=== PATIENT | female | born 1990 | race Two or more races ===

== ENCOUNTER 2021-05-14 10:07 | Outpatient (CLI) | payer OTHER | END 2021-05-14 10:19 | disposition home or self-care (01) | LOC: RX STUDY 10:07 | DX: N93.8 Other specified abnormal uterine and vaginal bleeding (principal); N97.0 Female infertility associated with anovulation ==

== ENCOUNTER → 2021-10-15 10:10 | Outpatient (CLI) | payer OTHER | END | disposition home or self-care (01) | LOC: RAD 10:10 | PROVIDERS: ATTEND Internal Medicine | DX: K21.9 Gastro-esophageal reflux disease without esophagitis (principal); G47.31 Primary central sleep apnea; I10 Essential (primary) hypertension ==

== ENCOUNTER 2022-11-07 15:14 | Emergency (ER) | payer OTHER ==
[~2022-11-07] VITALS: Ht 152.4 cm; Wt 59.4 kg
== END 2022-11-07 19:10 | disposition home or self-care (01) ==
LOC: ER 15:14
DX: O98.811 Other maternal infectious and parasitic diseases complicating pregnancy, first trimester (principal); Z3A.10 10 weeks gestation of pregnancy; Z88.2 Allergy status to sulfonamides; J06.9 Acute upper respiratory infection, unspecified; Z20.822 Contact with and (suspected) exposure to COVID-19

== ENCOUNTER 2022-11-15 22:01 | Emergency (ER) | payer OTHER ==
[~2022-11-15] VITALS: Ht 152.4 cm; Wt 58.1 kg
== END 2022-11-16 04:18 | disposition home or self-care (01) ==
LOC: ER 22:01
DX: O20.8 Other hemorrhage in early pregnancy (principal); Z3A.13 13 weeks gestation of pregnancy; Z88.2 Allergy status to sulfonamides

== ENCOUNTER 2022-12-11 12:49 | Emergency (ER) | payer OTHER ==
[~2022-12-11] VITALS: Ht 152.4 cm; Wt 59.4 kg
[2022-12-11] MEDS ORDERED: SYNTHROID88 MCG (13:10)
[2022-12-11] MEDS ORDERED: PANTOPRAZOLE SO40 MG (13:10)
[2022-12-11] MEDS ORDERED: ONE-A-DAY PREN1 EAC2 (13:13)
== END 2022-12-11 16:02 | disposition home or self-care (01) ==
LOC: ER 12:49
DX: O20.9 Hemorrhage in early pregnancy, unspecified (principal); O99.282 Endocrine, nutritional and metabolic diseases complicating pregnancy, second trimester; E03.9 Hypothyroidism, unspecified; Z3A.16 16 weeks gestation of pregnancy; Z88.2 Allergy status to sulfonamides; Z91.018 Allergy to other foods

== ENCOUNTER 2023-01-09 11:05 | Outpatient (CLI) | payer OTHER ==
[~2023-01-09 11:05] MED LIST: ONE-A-DAY PREN1 EAC2; PANTOPRAZOLE SO40 MG; SYNTHROID88 MCG
== END 2023-01-09 13:12 | disposition home or self-care (01) ==
LOC: PRENATAL 11:05
PROVIDERS: ATTEND Obstetrics & Gynecology Maternal & Fetal Medicine
DX: O35.9XX0 Maternal care for (suspected) fetal abnormality and damage, unspecified, not applicable or unspecified (principal); O99.280 Endocrine, nutritional and metabolic diseases complicating pregnancy, unspecified trimester; Z3A.20 20 weeks gestation of pregnancy

== ENCOUNTER 2023-01-30 17:32 | Outpatient (CLI) | payer OTHER | END 2023-01-31 13:28 | disposition home or self-care (01) | LOC: OBS/DEL 17:32 | PROVIDERS: ATTEND Student in an Organized Health Care Education/Training Program | DX: O26.852 Spotting complicating pregnancy, second trimester (principal); R10.2 Pelvic and perineal pain; Z3A.23 23 weeks gestation of pregnancy ==

== ENCOUNTER 2023-02-13 16:48 | Inpatient (IN) | payer OTHER ==
[~2023-02-13] VITALS: Ht 152.4 cm; Wt 61.2 kg
[2023-02-13] MEDS ORDERED: PROMETRIUM200 MG PO (17:32)
[2023-02-13] MEDS ORDERED: PROBIOTIC1 EAC2 PO (17:33)
[2023-02-13] MEDS ORDERED: IRON325 MG PO (17:33)
[2023-02-14] MEDS ORDERED: PROVENTIL HFA6.7 GM IH (16:53)
[2023-02-14] MEDS ORDERED: PULMICORT FLEX90 MCG IH (16:55)
== END 2023-02-14 19:28 | disposition home or self-care (01) | DRG 831 ==
LOC: LDR 16:48
PROVIDERS: ADMIT Obstetrics & Gynecology; ATTEND Obstetrics & Gynecology
PROC: 4A1HXCZ Monitoring of Products of Conception, Cardiac Rate, External Approach (ICD-10-PCS; principal; 2023-02-13)
DX: O98.512 Other viral diseases complicating pregnancy, second trimester (principal); U07.1 COVID-19; Z3A.25 25 weeks gestation of pregnancy; Z20.822 Contact with and (suspected) exposure to COVID-19; O46.8X2 Other antepartum hemorrhage, second trimester

== ENCOUNTER 2023-04-03 10:08 | Outpatient (CLI) | payer OTHER ==
[~2023-04-03 10:08] MED LIST changes: +IRON325 MG PO; +PROBIOTIC1 EAC2 PO; +PROMETRIUM200 MG PO; +PROVENTIL HFA6.7 GM IH; +PULMICORT FLEX90 MCG IH
== END 2023-04-03 11:19 | disposition home or self-care (01) ==
LOC: PRENATAL 10:08
PROVIDERS: ATTEND Obstetrics & Gynecology Maternal & Fetal Medicine
DX: O26.849 Uterine size-date discrepancy, unspecified trimester (principal); O36.8199 Decreased fetal movements, unspecified trimester, other fetus; O99.280 Endocrine, nutritional and metabolic diseases complicating pregnancy, unspecified trimester; O26.859 Spotting complicating pregnancy, unspecified trimester; Z3A.33 33 weeks gestation of pregnancy

== ENCOUNTER 2023-05-07 07:35 | Inpatient (IN) | payer OTHER ==
[~2023-05-07] VITALS: Ht 152.4 cm; Wt 64.0 kg
[2023-05-07] MEDS ORDERED: VALTREX1000 MG PO (08:43)
[2023-05-09] MEDS ORDERED: IBU800 MG PO (08:02)
[2023-05-09] MEDS ORDERED: SIMETHICONE80 MG PO (08:02)
[2023-05-09] MEDS ORDERED: COLACE100 MG PO (08:02)
== END 2023-05-09 18:15 | disposition home or self-care (01) | DRG 807 ==
LOC: LDR 07:35 → OB/GYN 16:56
PROVIDERS: ADMIT Obstetrics & Gynecology; ATTEND Obstetrics & Gynecology
PROC: 10E0XZZ Delivery of Products of Conception, External Approach (ICD-10-PCS; principal; 2023-05-07)
PROC: 0KQM0ZZ Repair Perineum Muscle, Open Approach (ICD-10-PCS; 2023-05-07)
PROC: 4A1HXCZ Monitoring of Products of Conception, Cardiac Rate, External Approach (ICD-10-PCS; 2023-05-07)
DX: O70.1 Second degree perineal laceration during delivery (principal); Z37.0 Single live birth; Z3A.37 37 weeks gestation of pregnancy; Z20.822 Contact with and (suspected) exposure to COVID-19

== ENCOUNTER 2025-02-21 10:11 | Day surgery (SDC) | payer OTHER ==
[2025-02-15 08:42] LABS: EOS # 0.12 (0.04-0.54); EOS % 1.5 % (0.7-7.0); HEMOGLOBIN 12.9 g/dL (11.2-15.7); LYMPH # 2.26 (1.18-3.74); LYMPH % 27.9 % (19.3-53.1); MEAN CORPUSCULAR HEMOGLOBIN 27.9 pg (25.6-32.2); MONO # 0.56 (0.24-0.82); MONO % 6.9 % (4.7-12.5); NEUT # 5.05 (1.56-6.13); NEUT % 62.3 % (34.0-71.1); PLATELET COUNT 304 K/uL (163-369); RED BLOOD COUNT 4.63 M/uL (3.93-5.22); RED CELL DISTRIBUTION WIDTH 12.2 % (11.6-14.4)
[2025-02-15 09:10] VITALS: BP 95/67
[2025-02-15 09:16] LABS: INR < 0.93; PARTIAL THROMBOPLASTIN TIME 29.5 SECONDS (22.0-34.0); PROTHROMBIN TIME 9.7 SECONDS (9.0-11.5)
[2025-02-15 09:19] LABS: ALBUMIN 3.9 gm/dL (3.4-5.0); BILIRUBIN TOTAL 0.31 mg/dL (0.3-1.2); CALCIUM 9.3 mg/dL (8.5-10.1); CREATININE SERUM 0.87 mg/dL (0.55-1.02); GFR 73.67; GLOBULINA 3.3 G/DL (2.4-3.5); POTASSIUM 4.24 mEq/L (3.5-5.1); TOTAL PROTEIN 7.2 gm/dL (6.4-8.2)
[2025-02-15 09:24] LABS: URINE APPEARANCE Clear; URINE BILIRRUBIN Negative (NEGATIVE); URINE BLOOD Negative; URINE COLOR Yellow; URINE GLUCOSE Negative (NEGATIVE); URINE KETONE Trace (NEGATIVE); URINE LEUKOCYTE Negative; URINE NITRATE Negative; URINE PROTEIN Negative (NEGATIVE); URINE UROBILINOGEN 0.2 E.U./dl
[2025-02-15 09:28] LABS: URINE BACTERIA 159.1 uL (0.0-1933); URINE EPITHELIAL CELLS 28.1 uL (0.0-38.8); URINE RBC 26.8 uL (0.0-20.8); URINE WBC 7.4 uL (0.0-23.2)
[2025-02-15 09:36] LABS: URINE CAST 0.29 uL (0.0-1.40)
[~2025-02-21] VITALS: Ht 152.4 cm; Wt 65.8 kg
[~2025-02-21 10:11] MED LIST changes: +COLACE100 MG PO; +IBU800 MG PO; +PROBIOTIC1 EAC4; +SIMETHICONE80 MG PO; +VALTREX1000 MG PO; +[UNRECOGNIZED DRUG - OTHER]
[2025-02-21] MEDS ORDERED: POVIDONE-IODINE 118 ML BOTT TOP ONE (12:24)
[2025-02-21] MEDS ORDERED: IBU800 MG PO (12:39)
[2025-02-21] MEDS ORDERED: OXYCODONE HCL5 M1 PO (12:39)
[2025-02-21] MEDS ORDERED: COLACE100 MG PO (12:39)
[2025-02-21] MEDS ORDERED: SURGIFLO APPLICATOR 1 EACH APPL TOP ONE (14:31)
[2025-02-21] MEDS ORDERED: HEMOSTATIC MATRIX 1 KIT KIT TOP ONE (14:31)
== END 2025-02-21 18:20 | disposition home or self-care (01) ==
LOC: CIR.AMB 10:11
PROVIDERS: ATTEND Student in an Organized Health Care Education/Training Program
DX: N80.311 Superficial endometriosis of the anterior cul-de-sac (principal); N80.3C2 Endometriosis of the left uterosacral ligament, unspecified depth; N84.0 Polyp of corpus uteri; N80.8 Other endometriosis; R10.2 Pelvic and perineal pain; N93.8 Other specified abnormal uterine and vaginal bleeding; Z88.2 Allergy status to sulfonamides; Z91.018 Allergy to other foods